=== PATIENT | male | born 1955 | race African-American/Black ===

== ENCOUNTER 2024-07-11 14:24 | Emergency (ER) | payer MEDICAID ==
[~2024-07-11] VITALS: Ht 185.4 cm; Wt 82.0 kg
[~2024-07-11 14:24] MED LIST: ALBUTEROL; BUDE6.9H INH; BUPR150T3 PO; IBUP1TAB73 PO; SUDAFED PO
[2024-07-11] MEDS: METHYLPREDNISOLONE SOD SUCC 125MG/2ML (ACT-O-VIAL) IV STA (14:55)
[2024-07-11 15:07] VITALS: PULSE 80; RESP 18; O2SAT 100
[2024-07-11] MEDS: IPRATROPIUM/ALBUTEROL 0.5-3(2.5)MG/3ML NEB HHN STA ×2 (15:07→16:39)
[2024-07-11 15:34] LABS: BASOPHILS % 0.6 % (0.0-2.0); EOSINOPHILS % 2.7 % (0.0-5.0); HEMATOCRIT. 39.4 % (42.0-52.0); HEMOGLOBIN. 13.3 g/dL (14.0-18.0); LYMPHOCYTES % 46.3 % (20.0-50.0); MEAN CORPUSCULAR HEMOGLOBIN 31.7 pg (28.0-32.0); MEAN CORPUSCULAR HGB CONC 33.8 g/dL (31.0-37.0); MEAN CORPUSCULAR VOLUME 93.7 fL (80.0-94.0); MEAN PLATELET VOLUME 9.9 fl (7.4-10.4); MONOCYTES % 11.1 % (2.0-8.0); NEUTROPHILS % 39.3 % (40.0-76.0); PLATELET 135 x1000/uL (130-400); RED CELL DISTRIBUTION WIDTH 13.4 % (11.6-14.6)
[2024-07-11 15:37] LABS: CHLORIDE 104 mEq/L (98-107); POTASSIUM 3.8 mEq/L (3.5-5.1); SODIUM 140 mEq/L (136-145)
[2024-07-11 15:38] LABS: CALCIUM 9.2 mg/dL (8.7-10.4); CARBON DIOXIDE 32 mEq/L (21-32)
[2024-07-11 15:43] LABS: GLUCOSE 99 mg/dL (70-105); UREA NITROGEN BLOOD 11 mg/dL (9-23)
[2024-07-11 16:39] VITALS: PULSE 75; RESP 18; O2SAT 98
[2024-07-11 17:03] LABS: TROPONIN I HIGH SENSITIVITY 4 ng/L (3.0-53)
[2024-07-11] MEDS ORDERED: P20 PO (19:14)
[2024-07-11] MEDS ORDERED: AMOX1TAB16 MT (19:14)
[2024-07-11 19:38] VITALS: BP 112/56; PULSE 75; RESP 18; TEMP 36.83628; O2SAT 98
== END 2024-07-11 19:46 | disposition home or self-care (01) ==
LOC: ER 14:24
DX: J06.9 Acute upper respiratory infection, unspecified (principal); R06.1 Stridor; J45.909 Unspecified asthma, uncomplicated; F17.200 Nicotine dependence, unspecified, uncomplicated; Z91.013 Allergy to seafood; Z79.899 Other long term (current) drug therapy
CPT/HCPCS: 99285; 96374; 71045; 80048; 83880; 85025; 85610; 84484; 36415; 94640; J2919

== ENCOUNTER 2025-05-10 12:40 | Inpatient (IN) | payer BC, MEDICAID, MEDICARE ==
[~2025-05-10] VITALS: Ht 172.7 cm; Wt 72.2 kg
[2025-05-10] VITALS (40 sets, daily range): BP systolic 80–113; BP diastolic 64–86; PULSE 68–83; RESP 16–31; TEMP 36.4–36.5; O2SAT 99–100
[~2025-05-10 12:40] MED LIST changes: +AMOX1TAB16 MT; +P20 PO
[2025-05-10] MEDS: ALBUTEROL (0.083%) 2.5MG/3ML NEB HHN SCH (13:01)
[2025-05-10] MEDS: IPRATROPIUM BROMIDE (0.02%) 0.5MG/2.5ML NEB HHN SCH (13:01)
[2025-05-10] MEDS: METHYLPREDNISOLONE SOD SUCC 125MG/2ML (ACT-O-VIAL) IV ONE (13:04)
[2025-05-10 13:26] LABS: BASOPHILS % 0.3 % (0.0-2.0); EOSINOPHILS % 0.0 % (0.0-5.0); HEMATOCRIT. 38.0 % (42.0-52.0); HEMOGLOBIN. 12.6 g/dL (14.0-18.0); LYMPHOCYTES % 14.0 % (20.0-50.0); MEAN PLATELET VOLUME 9.5 fl (7.4-10.4); MONOCYTES % 9.1 % (2.0-8.0); NEUTROPHILS % 76.6 % (40.0-76.0); PLATELET 112 x1000/uL (130-400); RED BLOOD CELL COUNT 4.01 mill/uL (4.7-6.1); RED CELL DISTRIBUTION WIDTH 13.6 % (11.6-14.6)
[2025-05-10 13:32] LABS: BG BASE EXCESS 7.6 mmol/L (-2.0-3.0); BG CARBOXYHEMOGLOBIN 3.2 % (0.5-1.5); BG DEOXYHEMOGLOBIN 10.3 % (0.0-5.0); BG FRACTION INSPIRED OXYGEN 40; BG HCO3 ACT 44.3 mmol/L (21.0-28.0); BG METHEMOGLOBIN 0.3 % (0.5-1.5); BG OXYGEN SATURATION 89.3 % (94.0-98.0); BG OXYHEMOGLOBIN 86.2 % (94.0-98.0); BG PCO2 170.8 mmHg (35.0-48.0); BG PH 7.032 (7.350-7.450); BG PO2 77.2 mmHg (83.0-108.0); BG SAMPLE SITE RIGHT RADIAL; BG TOTAL HEMOGLOBIN 13.9 g/dL (13.5-17.5); BG TOTAL RESPIRATORY RATE 22 b/min; BG VENT MODE MASK - BIPAP; BG VENT RATE 20.0 set
[2025-05-10] MEDS: ROCURONIUM BROMIDE 10MG/ML VIAL 5ML IV ONE (13:59)
[2025-05-10] MEDS: ETOMIDATE 2MG/ML 10ML VIAL IV ONE (14:00)
[2025-05-10 14:21] LABS: UREA NITROGEN BLOOD 17 mg/dL (9-23)
[2025-05-10 14:22] LABS: ASPARTATE AMINOTRANSFERASE 98 IU/L (<34); BILIRUBIN DIRECT 0.9 mg/dL (<=3.0); BILIRUBIN TOTAL 1.6 mg/dL (0.1-1.0); CREATININE 1.9 mg/dL (0.6-1.3); PROTEIN TOTAL 6.6 g/dL (6.0-8.3)
[2025-05-10] MEDS: CEFTRIAXONE 1GM/50ML 50 ML IV NR (14:22)
[2025-05-10] MEDS ORDERED: MIDAZOLAM 100MG/100ML PMX 100 ML IV PRN (14:30)
[2025-05-10] MEDS: AZITHROMYCIN 500MG/250ML 250 ML IV NR (14:30)
[2025-05-10 14:31] LABS: TROPONIN I HIGH SENSITIVITY 175 ng/L (3.0-53)
[2025-05-10] MEDS: MIDAZOLAM 100MG/100ML PMX 100 ML IV PRN (14:48)
[2025-05-10] MEDS ORDERED: ACETAMINOPHEN 650MG SUPP PR PRN ×2 (17:00)
[2025-05-10] MEDS: DEXT 5%/0.45% NACL 1000ML 1,000 ML IV SCH (17:40)
[2025-05-10] MEDS: LEVOFLOXACIN 500MG PREMIX 100 ML IV SCH (19:30)
[2025-05-10] MEDS: VANCOMYCIN 1.25GM/250ML 250 ML IV NR (19:30)
[2025-05-10] MEDS: IPRATROPIUM/ALBUTEROL 0.5-3(2.5)MG/3ML NEB HHN SCH (20:05)
[2025-05-10 20:21] LABS: BG BASE EXCESS 8.1 mmol/L (-2.0-3.0); BG CARBOXYHEMOGLOBIN 0.4 % (0.5-1.5); BG DEOXYHEMOGLOBIN 0.1 % (0.0-5.0); BG FRACTION INSPIRED OXYGEN 100; BG HCO3 ACT 33.4 mmol/L (21.0-28.0); BG METHEMOGLOBIN 0.3 % (0.5-1.5); BG OXYGEN SATURATION 99.9 % (94.0-98.0); BG OXYHEMOGLOBIN 99.2 % (94.0-98.0); BG PCO2 49.1 mmHg (35.0-48.0); BG PEEP (cmH2O) 5.0 cmH2O; BG PH 7.450 (7.350-7.450); BG PO2 350.5 mmHg (83.0-108.0); BG SAMPLE SITE RIGHT RADIAL; BG TIDAL VOLUME(mL) 450.0 mL; BG TOTAL HEMOGLOBIN 12.8 g/dL (13.5-17.5); BG VENT MODE VENT - AC; BG VENT RATE 22.0 set
[2025-05-10] MEDS: ENOXAPARIN 30MG/0.3ML SYR SUBCUT SCH (21:36)
[2025-05-10] MEDS: METHYLPREDNISOLONE SOD SUCC 40MG/ML (ACT-O-VIAL) IV SCH (23:00)
[2025-05-11] VITALS (90 sets, daily range): BP systolic 85–144; BP diastolic 65–102; PULSE 54–84; RESP 15–25; TEMP 36.6–36.9; O2SAT 95–100
[2025-05-11] MEDS: BUDESONIDE 0.5MG/2ML NEB HHN SCH (00:15)
[2025-05-11 00:19] LABS: CREATINE KINASE MB FRACTION 8.0 ng/mL (0.5-3.6)
[2025-05-11 00:28] LABS: TROPONIN I HIGH SENSITIVITY 742.0 ng/L (3.0-53)
[2025-05-11 05:30] LABS: BASOPHILS % 0.2 % (0.0-2.0); EOSINOPHILS % 0.2 % (0.0-5.0); HEMATOCRIT. 39.2 % (42.0-52.0); HEMOGLOBIN. 12.9 g/dL (14.0-18.0); LYMPHOCYTES % 17.7 % (20.0-50.0); MEAN PLATELET VOLUME 10.6 fl (7.4-10.4); MONOCYTES % 4.8 % (2.0-8.0); NEUTROPHILS % 77.1 % (40.0-76.0); PLATELET 115 x1000/uL (130-400); RED BLOOD CELL COUNT 4.18 mill/uL (4.7-6.1); RED CELL DISTRIBUTION WIDTH 13.2 % (11.6-14.6)
[2025-05-11 05:36] LABS: INR 1.3
[2025-05-11 05:43] LABS: CREATINE KINASE MB FRACTION 7.4 ng/mL (0.5-3.6)
[2025-05-11 05:46] LABS: CREATININE 1.2 mg/dL (0.6-1.3)
[2025-05-11 05:47] LABS: UREA NITROGEN BLOOD 18 mg/dL (9-23)
[2025-05-11 05:49] LABS: PHOSPHORUS 1.8 mg/dL (2.5-4.9)
[2025-05-11 05:56] LABS: TROPONIN I HIGH SENSITIVITY 621.0 ng/L (3.0-53)
[2025-05-11] MEDS: PANTOPRAZOLE SODIUM 40 MG/VIAL IV SCH (08:09)
[2025-05-11] MEDS: ASPIRIN 81MG TABLET PO SCH (08:10)
[2025-05-11] MEDS ORDERED: ENOXAPARIN 40MG/0.4ML SYR SUBCUT SCH (09:00)
[2025-05-11 09:20] LABS: BG BASE EXCESS 7.2 mmol/L (-2.0-3.0); BG CARBOXYHEMOGLOBIN 0.9 % (0.5-1.5); BG DEOXYHEMOGLOBIN 2.4 % (0.0-5.0); BG FRACTION INSPIRED OXYGEN 50; BG HCO3 ACT 32.2 mmol/L (21.0-28.0); BG METHEMOGLOBIN 0.1 % (0.5-1.5); BG OXYGEN SATURATION 97.6 % (94.0-98.0); BG OXYHEMOGLOBIN 96.6 % (94.0-98.0); BG PCO2 47.0 mmHg (35.0-48.0); BG PEEP (cmH2O) 5.0 cmH2O; BG PH 7.454 (7.350-7.450); BG PO2 98.8 mmHg (83.0-108.0); BG SAMPLE SITE RIGHT RADIAL; BG TIDAL VOLUME(mL) 450.0 mL; BG TOTAL HEMOGLOBIN 13.1 g/dL (13.5-17.5); BG VENT MODE VENT - AC; BG VENT RATE 22.0 set
[2025-05-11] MEDS: ENOXAPARIN 30MG/0.3ML SYR SUBCUT SCH (10:41)
[2025-05-11] MEDS ORDERED: VANCOMYCIN 750MG PREMIX 150 ML IV SCH (12:00)
[2025-05-11] MEDS: VANCOMYCIN 1GM PMX (XELLIA) 200 ML IV SCH (15:39)
[2025-05-11] MEDS: DEXMEDETOMIDINE 100 ML IV PRN (19:09)
[2025-05-11] MEDS ORDERED: ENOXAPARIN 30MG/0.3ML SYR SUBCUT SCH (21:00)
[2025-05-11] MEDS: LEVOFLOXACIN 500MG PREMIX 100 ML IV SCH (21:04)
[2025-05-12] VITALS (102 sets, daily range): BP systolic 105–146; BP diastolic 79–112; PULSE 50–101; RESP 16–25; TEMP 36.4–36.9; O2SAT 97–100
[2025-05-12 05:45] LABS: PLATELET 126 x1000/uL (130-400); RED BLOOD CELL COUNT 4.25 mill/uL (4.7-6.1); RED CELL DISTRIBUTION WIDTH 13.6 % (11.6-14.6)
[2025-05-12 06:01] LABS: CREATININE 0.9 mg/dL (0.6-1.3)
[2025-05-12 06:02] LABS: UREA NITROGEN BLOOD 14 mg/dL (9-23)
[2025-05-12 06:03] LABS: CREATINE KINASE MB FRACTION 5.6 ng/mL (0.5-3.6)
[2025-05-12 06:04] LABS: PHOSPHORUS 2.0 mg/dL (2.5-4.9)
[2025-05-12 06:25] LABS: TROPONIN I HIGH SENSITIVITY 281 ng/L (3.0-53)
[2025-05-12] MEDS: TAMSULOSIN HCL 0.4MG SR CAPSULE PO SCH (09:00)
[2025-05-12 09:07] LABS: BG BASE EXCESS 4.2 mmol/L (-2.0-3.0); BG CARBOXYHEMOGLOBIN 1.0 % (0.5-1.5); BG DEOXYHEMOGLOBIN 2.3 % (0.0-5.0); BG FRACTION INSPIRED OXYGEN 40; BG HCO3 ACT 28.2 mmol/L (21.0-28.0); BG METHEMOGLOBIN 0.1 % (0.5-1.5); BG OXYGEN SATURATION 97.7 % (94.0-98.0); BG OXYHEMOGLOBIN 96.6 % (94.0-98.0); BG PCO2 40.1 mmHg (35.0-48.0); BG PEEP (cmH2O) 5.0 cmH2O; BG PH 7.465 (7.350-7.450); BG PO2 103.1 mmHg (83.0-108.0); BG SAMPLE SITE RIGHT RADIAL; BG TIDAL VOLUME(mL) 450.0 mL; BG TOTAL HEMOGLOBIN 13.8 g/dL (13.5-17.5); BG VENT MODE VENT - AC; BG VENT RATE 22.0 set
[2025-05-12] MEDS: CEFTRIAXONE 1GM/50ML 50ML IV SCH (21:32)
[2025-05-13] VITALS (96 sets, daily range): BP systolic 100–150; BP diastolic 78–108; PULSE 52–97; RESP 11–25; TEMP 36.3–37; O2SAT 98–100
[2025-05-13] MEDS: DEXMEDETOMIDINE 250 ML IV PRN (00:08)
[2025-05-13] MEDS: QUETIAPINE FUMARATE 25MG TABLET PO SCH (02:42)
[2025-05-13 06:31] LABS: CREATININE 0.9 mg/dL (0.6-1.3); UREA NITROGEN BLOOD 17 mg/dL (9-23)
[2025-05-13] MEDS ORDERED: QUETIAPINE FUMARATE 25MG TABLET PO SCH (09:00)
[2025-05-14] VITALS (79 sets, daily range): BP systolic 99–162; BP diastolic 50–127; PULSE 69–159; RESP 14–31; TEMP 36.8–38.1; O2SAT 93–100
[2025-05-14 01:57] LABS: BG BASE EXCESS 0.5 mmol/L (-2.0-3.0); BG CARBOXYHEMOGLOBIN 0.9 % (0.5-1.5); BG DEOXYHEMOGLOBIN 1.5 % (0.0-5.0); BG FLOW(L/min) 10.00 L/min; BG FRACTION INSPIRED OXYGEN 80; BG HCO3 ACT 26.1 mmol/L (21.0-28.0); BG METHEMOGLOBIN 0.2 % (0.5-1.5); BG OXYGEN SATURATION 98.5 % (94.0-98.0); BG OXYHEMOGLOBIN 97.4 % (94.0-98.0); BG PCO2 45.3 mmHg (35.0-48.0); BG PH 7.378 (7.350-7.450); BG PO2 126.0 mmHg (83.0-108.0); BG SAMPLE SITE LEFT RADIAL; BG TOTAL HEMOGLOBIN 14.6 g/dL (13.5-17.5); BG VENT MODE COOL AEROSOL
[2025-05-14] MEDS: OLANZAPINE 10 MG/VIAL IM NR (04:59)
[2025-05-14] MEDS: LORAZEPAM 2MG/ML UD SYRINGE IV PRN (11:48)
[2025-05-14] MEDS: ACETAMINOPHEN 325MG TABLET PO PRN (15:50)
[2025-05-14] MEDS: DILTIAZEM HCL 30MG TABLET PO SCH (18:30)
[2025-05-14] MEDS: OLANZAPINE 10MG TABLET PO SCH (20:17)
[2025-05-14] MEDS: DIPHENHYDRAMINE 50MG/ML VIAL IV PRN (20:47)
[2025-05-15] VITALS (93 sets, daily range): BP systolic 102–175; BP diastolic 56–138; PULSE 65–122; RESP 11–26; TEMP 36.7–37.3; O2SAT 96–100
[2025-05-15 06:15] LABS: PLATELET 115 x1000/uL (130-400); RED BLOOD CELL COUNT 4.29 mill/uL (4.7-6.1); RED CELL DISTRIBUTION WIDTH 13.6 % (11.6-14.6)
[2025-05-15 06:27] LABS: CREATININE 1.0 mg/dL (0.6-1.3); UREA NITROGEN BLOOD 17 mg/dL (9-23)
[2025-05-15 07:38] LABS: TROPONIN I HIGH SENSITIVITY 170 ng/L (3.0-53)
[2025-05-15] MEDS: RACEPINEPHRINE 2.25% 0.5ML NEB VIAL HHN SCH (20:07)
[2025-05-16] VITALS (117 sets, daily range): BP systolic 108–160; BP diastolic 72–131; PULSE 85–130; RESP 10–29; TEMP 36.3–37.2; O2SAT 78–100
[2025-05-16 06:08] LABS: HEMATOCRIT. 41.3 % (42.0-52.0); HEMOGLOBIN. 13.6 g/dL (14.0-18.0); MEAN PLATELET VOLUME 10.6 fl (7.4-10.4); PLATELET 123 x1000/uL (130-400); RED BLOOD CELL COUNT 4.47 mill/uL (4.7-6.1); RED CELL DISTRIBUTION WIDTH 13.5 % (11.6-14.6)
[2025-05-16 06:26] LABS: CREATININE 0.9 mg/dL (0.6-1.3); UREA NITROGEN BLOOD 14 mg/dL (9-23)
[2025-05-16 08:48] LABS: BAND% 3.0 % (1.0-6.0); LYMPHOCYTES % MANUAL 3.0 % (20.0-50.0); MONOCYTES % MANUAL 3.0 % (2.0-8.0); NEUTROPHILS % MANUAL 91.0 % (45.0-75.0)
[2025-05-16 08:49] LABS: PLATELET ESTIMATE SLIGHTLY DECREASED
[2025-05-16] MEDS ORDERED: AMIODARONE HCL 150 MG in DEXT 5% WATER 100 ML IV ONE (10:00)
[2025-05-16] MEDS ORDERED: AMIODARONE HCL 900 MG in DEXT 5% WATER 482 ML IV SCH (10:00)
[2025-05-16] MEDS: AMIODARONE 150MG/100ML PREMIX IV NR (10:36)
[2025-05-16] MEDS: AMIODARONE 360MG/200ML D5W PREMIX IV SCH (11:09)
[2025-05-16] MEDS ORDERED: NALOXONE HCL 0.4MG/ML VIAL IV PRN (14:15)
[2025-05-16] MEDS: MORPHINE SULFATE 2 MG/ML INJ (NOT FOR IM USE) IV PRN (14:17)
[2025-05-16] MEDS: RISPERIDONE 0.5MG TABLET PO SCH (20:32)
[2025-05-16] MEDS: LORAZEPAM 2MG/ML UD SYRINGE IV PRN (23:34)
[2025-05-17] VITALS (99 sets, daily range): BP systolic 81–164; BP diastolic 42–134; PULSE 83–108; RESP 12–29; TEMP 36.7–36.8; O2SAT 90–100
[2025-05-17] MEDS: RACEPINEPHRINE 2.25% 0.5ML NEB VIAL HHN PRN (01:32)
[2025-05-17 04:28] LABS: HEMATOCRIT. 41.0 % (42.0-52.0); HEMOGLOBIN. 13.6 g/dL (14.0-18.0); MEAN PLATELET VOLUME 10.0 fl (7.4-10.4); PLATELET 118 x1000/uL (130-400); RED BLOOD CELL COUNT 4.42 mill/uL (4.7-6.1); RED CELL DISTRIBUTION WIDTH 13.4 % (11.6-14.6)
[2025-05-17 04:41] LABS: CREATININE 0.9 mg/dL (0.6-1.3); UREA NITROGEN BLOOD 17 mg/dL (9-23)
[2025-05-17 11:18] LABS: BAND% 2.0 % (1.0-6.0); LYMPHOCYTES % MANUAL 4.0 % (20.0-50.0); MONOCYTES % MANUAL 3.0 % (2.0-8.0); NEUTROPHILS % MANUAL 91.0 % (45.0-75.0); PLATELET ESTIMATE SLIGHTLY DECREASED
[2025-05-17 12:17] LABS: BG BASE EXCESS 7.8 mmol/L (-2.0-3.0); BG CARBOXYHEMOGLOBIN 1.3 % (0.5-1.5); BG DEOXYHEMOGLOBIN 4.4 % (0.0-5.0); BG FLOW(L/min) 3.50 L/min; BG FRACTION INSPIRED OXYGEN 34; BG HCO3 ACT 34.3 mmol/L (21.0-28.0); BG METHEMOGLOBIN 0.1 % (0.5-1.5); BG OXYGEN SATURATION 95.5 % (94.0-98.0); BG OXYHEMOGLOBIN 94.2 % (94.0-98.0); BG PCO2 56.2 mmHg (35.0-48.0); BG PH 7.403 (7.350-7.450); BG PO2 90.8 mmHg (83.0-108.0); BG SAMPLE SITE RIGHT RADIAL; BG TOTAL HEMOGLOBIN 13.2 g/dL (13.5-17.5); BG VENT MODE NASAL CANNULA
[2025-05-17] MEDS ORDERED: RISPERIDONE 0.5MG TABLET PO PRN (14:45)
[2025-05-17] MEDS: PIPERACILLIN/TAZO 3.375G/50ML 50 ML IV SCH (16:32)
[2025-05-17 17:45] LABS: ASPARTATE AMINOTRANSFERASE 32 IU/L (<34); BILIRUBIN DIRECT 0.5 mg/dL (<=3.0); BILIRUBIN TOTAL 1.3 mg/dL (0.1-1.0); PROTEIN TOTAL 5.7 g/dL (6.0-8.3)
[2025-05-17 18:42] LABS: CLARITY URINE CLOUDY (CLEAR); COLOR URINE RED (YELLOW); PH URINE 6.5 (4.5-8.0); SPECIFIC GRAVITY URINE 1.005 (1.005-1.030)
[2025-05-17 18:43] LABS: GLUCOSE URINE NEGATIVE (NEGATIVE); KETONES URINE 1+ (NEGATIVE); NITRITE URINE POSITIVE (NEGATIVE); OCCULT BLOOD URINE 3+ (NEGATIVE); PROTEIN URINE 3+ (NEGATIVE)
[2025-05-17 18:44] LABS: LEUKOCYTE ESTERASE URINE 2+ (NEGATIVE); UROBILINOGEN URINE 1.0 E.U./dL (0.2-1.0)
[2025-05-17 18:56] LABS: BACTERIA URINE 2+
[2025-05-17 18:57] LABS: RBC URINE TNTC /hpf (0-2); SQUAMOUS EPITHELIAL CELL URINE 1+ /lpf (RARE/1+)
[2025-05-18] VITALS (102 sets, daily range): BP systolic 88–153; BP diastolic 73–127; PULSE 73–105; RESP 14–33; TEMP 36.3–36.7; O2SAT 91–100
[2025-05-18] MEDS ORDERED: NOREPINEPHRINE 8MG/250ML PMX 250 ML IV PRN (04:00)
[2025-05-18] MEDS ORDERED: PHENYLEPHRINE 50MG/250ML PMX 250 ML IV PRN (04:00)
[2025-05-18] MEDS: MIDAZOLAM 100MG/100ML PMX 100 ML IV PRN (04:30)
[2025-05-18] MEDS ORDERED: RACEPINEPHRINE 2.25% 0.5ML NEB VIAL HHN PRN (04:45)
[2025-05-18 05:23] LABS: BG BASE EXCESS 8.9 mmol/L (-2.0-3.0); BG CARBOXYHEMOGLOBIN 0.7 % (0.5-1.5); BG DEOXYHEMOGLOBIN 1.1 % (0.0-5.0); BG FRACTION INSPIRED OXYGEN 60; BG HCO3 ACT 33.6 mmol/L (21.0-28.0); BG METHEMOGLOBIN 0.3 % (0.5-1.5); BG OXYGEN SATURATION 98.9 % (94.0-98.0); BG OXYHEMOGLOBIN 97.9 % (94.0-98.0); BG PCO2 46.0 mmHg (35.0-48.0); BG PEEP (cmH2O) 5.0 cmH2O; BG PH 7.482 (7.350-7.450); BG SAMPLE SITE LEFT RADIAL; BG TIDAL VOLUME(mL) 450.0 mL; BG TOTAL HEMOGLOBIN 14.1 g/dL (13.5-17.5); BG VENT MODE VENT - AC; BG VENT RATE 20.0 set
[2025-05-18 05:38] LABS: HEMATOCRIT. 39.5 % (42.0-52.0); HEMOGLOBIN. 13.2 g/dL (14.0-18.0); MEAN PLATELET VOLUME 10.3 fl (7.4-10.4); PLATELET 114 x1000/uL (130-400); RED BLOOD CELL COUNT 4.20 mill/uL (4.7-6.1); RED CELL DISTRIBUTION WIDTH 13.4 % (11.6-14.6)
[2025-05-18 06:06] LABS: CREATININE 1.3 mg/dL (0.6-1.3)
[2025-05-18 06:07] LABS: UREA NITROGEN BLOOD 20 mg/dL (9-23)
[2025-05-18] MEDS ORDERED: FENTANYL 2500MCG/250ML PMX 250 ML IV PRN (06:15)
[2025-05-18 06:43] LABS: BG BASE EXCESS 9.5 mmol/L (-2.0-3.0); BG CARBOXYHEMOGLOBIN 1.4 % (0.5-1.5); BG DEOXYHEMOGLOBIN 0.5 % (0.0-5.0); BG FRACTION INSPIRED OXYGEN 60; BG HCO3 ACT 33.3 mmol/L (21.0-28.0); BG METHEMOGLOBIN 0.1 % (0.5-1.5); BG OXYGEN SATURATION 99.5 % (94.0-98.0); BG OXYHEMOGLOBIN 98.0 % (94.0-98.0); BG PCO2 41.6 mmHg (35.0-48.0); BG PEEP (cmH2O) 5.0 cmH2O; BG PH 7.521 (7.350-7.450); BG PO2 177.1 mmHg (83.0-108.0); BG SAMPLE SITE LEFT RADIAL; BG TIDAL VOLUME(mL) 450.0 mL; BG TOTAL HEMOGLOBIN 13.6 g/dL (13.5-17.5); BG VENT MODE VENT - AC; BG VENT RATE 20.0 set
[2025-05-18 08:53] LABS: BAND% 2.0 % (1.0-6.0); LYMPHOCYTES % MANUAL 7.0 % (20.0-50.0); MONOCYTES % MANUAL 3.0 % (2.0-8.0); NEUTROPHILS % MANUAL 88.0 % (45.0-75.0); PLATELET ESTIMATE DECREASED
[2025-05-18] MEDS ORDERED: RISPERIDONE 0.25MG TABLET PO PRN (11:00)
[2025-05-18] MEDS: DEXT 5%/0.45% NACL 1000ML 1,000 ML IV SCH (12:18)
[2025-05-18] MEDS ORDERED: MONT-39 PO (13:28)
[2025-05-18] MEDS ORDERED: ALBU18HF2 PO (13:28)
[2025-05-19] VITALS (16 sets, daily range): BP systolic 94–112; BP diastolic 74–87; PULSE 89–97; RESP 20; TEMP 36.5; O2SAT 100
== END 2025-05-19 03:00 | disposition short-term general hospital (02) | DRG 208 ==
LOC: ER 12:40 → MICUSO 13:55 → EDBEDREQSVC 13:59 → EDBEDREQ 13:59 → EDBEDREQTM 13:59 → ENRESERV 14:52
PROVIDERS: ADMIT Internal Medicine; ATTEND Internal Medicine
PROC: 5A1945Z Respiratory Ventilation, 24-96 Consecutive Hours (ICD-10-PCS; principal; 2025-05-10)
PROC: 5A09357 Assistance with Respiratory Ventilation, Less than 24 Consecutive Hours, Continuous Positive Airway Pressure (ICD-10-PCS; 2025-05-10)
PROC: 5A1935Z Respiratory Ventilation, Less than 24 Consecutive Hours (ICD-10-PCS; 2025-05-18)
PROC: 0BH17EZ Insertion of Endotracheal Airway into Trachea, Via Natural or Artificial Opening (ICD-10-PCS; 2025-05-18)
DX: J96.22 Acute and chronic respiratory failure with hypercapnia (principal); N17.0 Acute kidney failure with tubular necrosis; I21.4 Non-ST elevation (NSTEMI) myocardial infarction; I61.8 Other nontraumatic intracerebral hemorrhage; G92.8 Other toxic encephalopathy; J45.901 Unspecified asthma with (acute) exacerbation; J44.1 Chronic obstructive pulmonary disease with (acute) exacerbation; N13.8 Other obstructive and reflux uropathy; I47.20 Ventricular tachycardia, unspecified; N39.0 Urinary tract infection, site not specified; I13.0 Hypertensive heart and chronic kidney disease with heart failure and stage 1 through stage 4 chronic kidney disease, or unspecified chronic kidney disease; J96.21 Acute and chronic respiratory failure with hypoxia; N18.9 Chronic kidney disease, unspecified; E86.0 Dehydration; I50.9 Heart failure, unspecified; R74.01 Elevation of levels of liver transaminase levels; I34.0 Nonrheumatic mitral (valve) insufficiency; N40.1 Benign prostatic hyperplasia with lower urinary tract symptoms; R31.9 Hematuria, unspecified; R41.0 Disorientation, unspecified; Z55.6 Problems related to health literacy; Z88.8 Allergy status to other drugs, medicaments and biological substances; Z79.899 Other long term (current) drug therapy
CPT/HCPCS: 31720; 36415; 36600; 70490; 71045; 76857; 80048; 80076; 80202; 81003; 82375; 82550; 82553; 82805; 82962; 83605; 83735; 83880; 84100; 84484; 85025; 85027; 86850; 86900; 92610; 93005; 93306; 94002; 94003; 94070; 94640; 94660; 94664; 99291; 99292; A4606; J0282; J0456; J0696; J1200; J1650; J1956; J2060; J2250; J2270; J2470; J2543; J2919; J3373; J3490; J7626